=== PATIENT | male | born 1970 | race Caucasian/White ===

== ENCOUNTER 2016-12-10 09:31 | Inpatient (IN) | payer MEDICAID ==
[~2016-12-10] VITALS: Ht 170.2 cm; Wt 73.0 kg
[~2016-12-10 09:31] MED LIST: ARIP15TA3 PO; CITA20TA9 PO; RISP3 PO; TRAZ-147 PO
[2016-12-10 10:24] VITALS: BP 136/82
[2016-12-10] MEDS ORDERED: HALOPERIDOL 5 MG TABLET PO PRN (11:00)
[2016-12-10] MEDS ORDERED: LORazepam 2 MG TABLET PO PRN (11:00)
[2016-12-10] MEDS ORDERED: INFLUENZA VIRUS VACCINE QVS 2016-17 (3YR+)/PF 60 MCG/0.5 ML SYRINGE IM ONE (12:00)
[2016-12-10 12:01] VITALS: BP 136/84
[2016-12-10 16:14] VITALS: BP 127/76
[2016-12-10] MEDS: RisperiDONE 2 MG TABLET PO SCH (19:18)
[2016-12-10] MEDS: TraZODone HCL 100 MG TABLET PO SCH (20:20)
[2016-12-11 06:01] VITALS: BP 116/82
[2016-12-11 08:32] LABS: BASOPHILS % (AUTO) 0.3 % (0.0-2.0); EOSINOPHILS % (AUTO) 2.2 % (1.0-6.0); HEMATOCRIT 41.7 % (41-53); LYMPHOCYTES # (AUTO) 0.8 K/uL (1.0-4.8); LYMPHOCYTES % (AUTO) 24.8 % (22.0-44.0); MEAN CORPUSCULAR HEMOGLOBIN 30.4 pg (26.0-34.0); MEAN CORPUSCULAR HGB CONC 33.7 G/dL (31.0-37.0); MEAN CORPUSCULAR VOLUME 90 fL (80-100); MONOCYTES # (AUTO) 0.4 K/uL (0.1-1.0); MONOCYTES % (AUTO) 12.4 % (2.0-9.0); NEUTROPHILS # (AUTO) 2.1 K/uL (1.8-7.7); NEUTROPHILS % (AUTO) 60.3 % (40.0-70.0); PLATELET COUNT (AUTO) 137 K/uL (150-450); RED BLOOD CELL COUNT(AUTO) 4.61 MIL/uL (4.50-5.90); RED CELL DISTRIBUTION WIDTH 14.7 % (11.5-14.5); WHITE BLOOD COUNT (AUTO) 3.4 K/uL (4.5-11.0)
[2016-12-11 09:17] LABS: ALANINE AMINOTRANSFERASE 123 U/L (12-78); ALBUMIN 3.4 g/dL (3.4-5.0); ANION GAP 9 mmol/L (8-16); ASPARTATE AMINOTRANSFERASE 61 U/L (15-37); BILIRUBIN,TOTAL 1.1 mg/dL (0.1-1.0); CALCIUM, TOTAL 8.2 mg/dL (8.8-10.5); CARBON DIOXIDE 31 mmol/L (22-29); CHLORIDE 98 mmol/L (98-107); CREATININE 0.86 mg/dL (0.60-1.30); GLOMERULAR FILTR. RATE CALC > 60 mL/min (>60); POTASSIUM 3.3 mmol/L (3.5-5.1); SODIUM SERUM 138 mmol/L (136-145); UREA NITROGEN, BLOOD 12 mg/dL (7-18)
[2016-12-11 09:41] LABS: APPEARANCE,URINE CLOUDY (CLEAR); GLUCOSE, URINE (UA) NEGATIVE (NEGATIVE); KETONES,URINE 15 mg/dL (NEGATIVE); LEUKOCYTE ESTERASE ,URINE NEGATIVE (NEGATIVE); OCCULT BLOOD,URINE TRACE (NEGATIVE); PROTEIN,URINE POS 1+ (NEGATIVE)
[2016-12-11 09:45] LABS: ADD UA MICROSCOPIC YES
[2016-12-11 09:54] LABS: WBC,URINE 0-2 /HPF (0-5)
[2016-12-11 09:55] LABS: CALCIUM OXALATE CRYSTALS,UR Few /LPF (None Seen); SQUAMOUS EPITHELIAL CELL,UR Few /LPF (None Seen)
[2016-12-11 09:56] VITALS: BP 108/68
[2016-12-11] MEDS: RisperiDONE 2 MG TABLET PO SCH ×2 (10:02→16:10)
[2016-12-11] MEDS: NICOTINE 14 MG/24 HOUR PATCH TD SCH (10:02)
[2016-12-11] MEDS: ARIPiprazole 15 MG TABLET PO SCH (10:02)
[2016-12-11] MEDS: CITALOPRAM HYDROBROMIDE 20 MG TABLET PO SCH (10:02)
[2016-12-11] MEDS ORDERED: POTASSIUM CHLORIDE 20 MEQ ER TABLET PO ONE (11:00)
[2016-12-11 16:15] VITALS: BP 126/77
[2016-12-11] MEDS: TraZODone HCL 100 MG TABLET PO SCH (20:43)
[2016-12-12 00:36] VITALS: BP 123/79
[2016-12-12] MEDS: ZOLPIDEM TARTRATE 10 MG TABLET PO PRN ×2 (01:23→20:15)
[2016-12-12 07:53] LABS: ANION GAP 9 mmol/L (8-16); CALCIUM, TOTAL 7.9 mg/dL (8.8-10.5); CARBON DIOXIDE 29 mmol/L (22-29); CHLORIDE 100 mmol/L (98-107); CREATININE 0.76 mg/dL (0.60-1.30); GLOMERULAR FILTR. RATE CALC > 60 mL/min (>60); POTASSIUM 3.5 mmol/L (3.5-5.1); SODIUM SERUM 138 mmol/L (136-145); UREA NITROGEN, BLOOD 10 mg/dL (7-18)
[2016-12-12 08:43] VITALS: BP 112/60
[2016-12-12] MEDS: RisperiDONE 2 MG TABLET PO SCH ×2 (09:11→16:10)
[2016-12-12] MEDS: ARIPiprazole 15 MG TABLET PO SCH (09:11)
[2016-12-12] MEDS: CITALOPRAM HYDROBROMIDE 20 MG TABLET PO SCH (09:11)
[2016-12-12] MEDS: NICOTINE 14 MG/24 HOUR PATCH TD SCH (09:11)
[2016-12-12 16:11] VITALS: BP 139/92
[2016-12-12] MEDS: TraZODone HCL 100 MG TABLET PO SCH (20:13)
[2016-12-13 05:54] VITALS: BP 129/81
[2016-12-13] MEDS: RisperiDONE 2 MG TABLET PO SCH (08:08)
[2016-12-13] MEDS: CITALOPRAM HYDROBROMIDE 20 MG TABLET PO SCH (08:08)
[2016-12-13] MEDS: ARIPiprazole 15 MG TABLET PO SCH (08:09)
[2016-12-13] MEDS: NICOTINE 14 MG/24 HOUR PATCH TD SCH (08:09)
[2016-12-13 08:19] VITALS: BP 118/70
== END 2016-12-13 10:30 | disposition home or self-care (01) | DRG 750 ==
LOC: B2S 10:54
PROVIDERS: ADMIT Psychiatry & Neurology Psychiatry; ATTEND Psychiatry & Neurology Psychiatry
DX: F25.9 Schizoaffective disorder, unspecified (principal); F32.9 Major depressive disorder, single episode, unspecified; F99 Mental disorder, not otherwise specified; M19.90 Unspecified osteoarthritis, unspecified site; E87.6 Hypokalemia; E78.5 Hyperlipidemia, unspecified; D72.819 Decreased white blood cell count, unspecified; G89.29 Other chronic pain; Z71.6 Tobacco abuse counseling; Z28.21 Immunization not carried out because of patient refusal; Z79.899 Other long term (current) drug therapy
CPT/HCPCS: 80307; 87086

== ENCOUNTER 2017-07-06 10:23 | Inpatient (IN) | payer MEDICAID, OTHER ==
[2017-07-06] VITALS (7 sets, daily range): BP systolic 103–139; BP diastolic 68–107
[~2017-07-06] VITALS: Ht 167.6 cm; Wt 67.2 kg
[~2017-07-06 10:23] MED LIST changes: +ARIP15TA2 PO; -ARIP15TA3 PO
[2017-07-06] MEDS ORDERED: RISP2 PO (11:09)
[2017-07-06] MEDS ORDERED: LORazepam 2 MG/ML VIAL IM ONE (11:15)
[2017-07-06] MEDS ORDERED: DiphenhydrAMINE HCL 50 MG/ML VIAL IM ONE (11:15)
[2017-07-06] MEDS ORDERED: HALOPERIDOL LACTATE 5 MG/ML VIAL IM ONE (11:15)
[2017-07-06 11:36] LABS: BASOPHILS % (AUTO) 0.5 % (0.0-2.0); EOSINOPHILS % (AUTO) 1.1 % (1.0-6.0); HEMATOCRIT 49.5 % (41-53); HEMOGLOBIN 17.2 g/dL (13.5-17.5); LYMPHOCYTES # (AUTO) 2.4 K/uL (1.0-4.8); LYMPHOCYTES % (AUTO) 38.4 % (22.0-44.0); MEAN CORPUSCULAR HEMOGLOBIN 30.8 pg (26.0-34.0); MEAN CORPUSCULAR HGB CONC 34.7 G/dL (31.0-37.0); MEAN CORPUSCULAR VOLUME 89 fL (80-100); MONOCYTES # (AUTO) 0.4 K/uL (0.1-1.0); NEUTROPHILS # (AUTO) 3.4 K/uL (1.8-7.7); PLATELET COUNT (AUTO) 269 K/uL (150-450); RED BLOOD CELL COUNT(AUTO) 5.58 MIL/uL (4.50-5.90); RED CELL DISTRIBUTION WIDTH 12.9 % (11.5-14.5); WHITE BLOOD COUNT (AUTO) 6.2 K/uL (4.5-11.0)
[2017-07-06 11:37] LABS: ANION GAP 17 mmol/L (8-16); CALCIUM, TOTAL 8.9 mg/dL (8.8-10.5); CARBON DIOXIDE 24 mmol/L (22-29); CHLORIDE 95 mmol/L (98-107); CREATININE 0.88 mg/dL (0.60-1.30); GLOMERULAR FILTR. RATE CALC > 60 mL/min (>60); POTASSIUM 3.6 mmol/L (3.5-5.1); SODIUM SERUM 136 mmol/L (136-145); UREA NITROGEN, BLOOD 4 mg/dL (7-18)
[2017-07-06 11:43] LABS: ALANINE AMINOTRANSFERASE 40 U/L (12-78); ALBUMIN 4.3 g/dL (3.4-5.0); ASPARTATE AMINOTRANSFERASE 29 U/L (15-37); BILIRUBIN,TOTAL 0.6 mg/dL (0.1-1.0); TOTAL PROTEIN, SERUM 8.2 g/dL (6.4-8.2)
[2017-07-06] MEDS ORDERED: MAG HYDROX/AL HYDROX/SIMETH ES 30 ML SUSPENSION UDCUP PO PRN (13:45)
[2017-07-06] MEDS ORDERED: MAGNESIUM HYDROXIDE SUSPENSION 30 ML UDCUP PO PRN (13:45)
[2017-07-06] MEDS ORDERED: LOPERAMIDE HCL 2 MG CAPSULE PO PRN (13:45)
[2017-07-06] MEDS ORDERED: INFLUENZA VIRUS VACCINE QVS 2017-18 (3YR+)/PF 60 MCG/0.5 ML SYRINGE IM ONE (16:00)
[2017-07-06] MEDS ORDERED: ACETAMINOPHEN 325 MG TABLET PO PRN (19:30)
[2017-07-07] VITALS (9 sets, daily range): BP systolic 123–151; BP diastolic 81–99
[2017-07-07] MEDS: PROMETHAZINE HCL 25 MG TABLET PO PRN ×2 (03:28→11:07)
[2017-07-07 08:36] LABS: THYROID STIMULATING HORMONE 3.03 uIU/mL (0.36-3.74)
[2017-07-07] MEDS ORDERED: ARIPiprazole 15 MG TABLET PO SCH (09:15)
[2017-07-07] MEDS: CITALOPRAM HYDROBROMIDE 20 MG TABLET PO SCH (09:24)
[2017-07-07] MEDS ORDERED: LORazepam 2 MG TABLET PO PRN (09:30)
[2017-07-07] MEDS ORDERED: HALOPERIDOL 5 MG TABLET PO PRN (09:30)
[2017-07-07] MEDS ORDERED: CYANOCOBALAMIN 1,000 MCG/ML VIAL IM ONE (10:15)
[2017-07-07] MEDS ORDERED: HydrOXYzine PAMOATE 50 MG CAPSULE PO PRN (10:15)
[2017-07-07] MEDS ORDERED: LOPERAMIDE HCL 2 MG CAPSULE PO PRN (10:15)
[2017-07-07] MEDS ORDERED: GuaiFENesin/D-METHORPHAN [SUGAR-FREE] 200-20MG/10 ML SYRUP UDCUP PO PRN (10:15)
[2017-07-07] MEDS: THIAMINE HCL 100 MG TABLET PO SCH (16:28)
[2017-07-07] MEDS ORDERED: CloNIDine HCL 0.1 MG TABLET PO PRN (16:45)
[2017-07-07] MEDS ORDERED: IBUPROFEN 400 MG TABLET PO PRN (16:45)
[2017-07-07] MEDS: TraZODone HCL 100 MG TABLET PO SCH (20:55)
[2017-07-08 01:51] VITALS: BP 123/81
[2017-07-08] MEDS ORDERED: ChlordiazePOXIDE HCL 25 MG CAPSULE PO PRN (07:00)
[2017-07-08] MEDS: CITALOPRAM HYDROBROMIDE 20 MG TABLET PO SCH (08:39)
[2017-07-08] MEDS: RisperiDONE 3 MG TABLET PO SCH ×2 (08:39→16:42)
[2017-07-08] MEDS: FOLIC ACID 1 MG TABLET PO SCH (08:39)
[2017-07-08] MEDS: ChlordiazePOXIDE HCL 25 MG CAPSULE PO SCH ×4 (08:39→20:32)
[2017-07-08] MEDS: THIAMINE HCL 100 MG TABLET PO SCH ×2 (08:39→16:42)
[2017-07-08] MEDS: MULTIVITAMINS WITH MINERALS, THERAPEUTIC TABLET PO SCH (08:40)
[2017-07-08] MEDS: NICOTINE 14 MG/24 HOUR PATCH TD SCH (08:40)
[2017-07-08 09:15] VITALS: BP 124/71
[2017-07-08 16:25] VITALS: BP 114/95
[2017-07-08] MEDS: TraZODone HCL 100 MG TABLET PO SCH (20:32)
[2017-07-09 06:15] VITALS: BP 107/66
[2017-07-09] MEDS: ChlordiazePOXIDE HCL 25 MG CAPSULE PO SCH ×4 (08:54→20:47)
[2017-07-09] MEDS: FOLIC ACID 1 MG TABLET PO SCH (08:54)
[2017-07-09] MEDS: RisperiDONE 3 MG TABLET PO SCH ×2 (08:54→17:29)
[2017-07-09] MEDS: MULTIVITAMINS WITH MINERALS, THERAPEUTIC TABLET PO SCH (08:54)
[2017-07-09] MEDS: CITALOPRAM HYDROBROMIDE 20 MG TABLET PO SCH (08:54)
[2017-07-09] MEDS: THIAMINE HCL 100 MG TABLET PO SCH ×2 (08:54→17:30)
[2017-07-09] MEDS: NICOTINE 14 MG/24 HOUR PATCH TD SCH (08:55)
[2017-07-09 09:03] VITALS: BP 122/82
[2017-07-09 16:55] VITALS: BP 129/89
[2017-07-09] MEDS: TraZODone HCL 100 MG TABLET PO SCH (20:47)
[2017-07-10 00:16] VITALS: BP 120/78
[2017-07-10] MEDS ORDERED: ChlordiazePOXIDE HCL 10 MG CAPSULE PO PRN (07:00)
[2017-07-10] MEDS: NICOTINE 14 MG/24 HOUR PATCH TD SCH (08:22)
[2017-07-10] MEDS: MULTIVITAMINS WITH MINERALS, THERAPEUTIC TABLET PO SCH (08:22)
[2017-07-10] MEDS: THIAMINE HCL 100 MG TABLET PO SCH (08:22)
[2017-07-10] MEDS: FOLIC ACID 1 MG TABLET PO SCH (08:22)
[2017-07-10] MEDS: RisperiDONE 3 MG TABLET PO SCH (08:22)
[2017-07-10] MEDS: CITALOPRAM HYDROBROMIDE 20 MG TABLET PO SCH (08:22)
[2017-07-10] MEDS ORDERED: ChlordiazePOXIDE HCL 10 MG CAPSULE PO SCH (09:00)
[2017-07-10] MEDS ORDERED: RISP3TAB44 PO (09:32)
[2017-07-10] MEDS ORDERED: FOLI1 PO (09:33)
[2017-07-10] MEDS ORDERED: MV-M1TAB2 PO (09:33)
[2017-07-11] MEDS ORDERED: ChlordiazePOXIDE HCL 10 MG CAPSULE PO PRN (07:00)
== END 2017-07-10 11:10 | disposition home or self-care (01) | DRG 750 ==
LOC: EMS 10:29 → B2S 13:40
PROVIDERS: ADMIT Psychiatry & Neurology Psychiatry; ATTEND Psychiatry & Neurology Psychiatry
DX: F25.9 Schizoaffective disorder, unspecified (principal); F22 Delusional disorders; I10 Essential (primary) hypertension; F10.10 Alcohol abuse, uncomplicated; F17.200 Nicotine dependence, unspecified, uncomplicated; M19.90 Unspecified osteoarthritis, unspecified site; F32.9 Major depressive disorder, single episode, unspecified
CPT/HCPCS: 84439; 84443; 90471; 96372; 99285; G0480; J1200; J1630; J2060; J3420

== ENCOUNTER 2017-09-06 07:51 | Inpatient (IN) | payer MEDICAID, OTHER ==
[~2017-09-06] VITALS: Ht 177.8 cm; Wt 67.6 kg
[~2017-09-06 07:51] MED LIST changes: -ARIP15TA2 PO; -RISP3 PO; +RISP3TAB44 PO
[2017-09-06] MEDS ORDERED: HALOPERIDOL LACTATE 5 MG/ML VIAL IM ONE (08:30)
[2017-09-06] MEDS ORDERED: LORazepam 2 MG/ML VIAL IM ONE (08:30)
[2017-09-06] MEDS ORDERED: DiphenhydrAMINE HCL 50 MG/ML VIAL IM ONE (08:30)
[2017-09-06 10:04] LABS: BASOPHILS # (AUTO) 0.03 K/uL (0.00-0.20); BASOPHILS % (AUTO) 0.4 % (0.0-2.0); EOSINOPHILS # (AUTO) 0.02 K/uL (0.00-0.70); EOSINOPHILS % (AUTO) 0.28 % (1.0-6.0); HEMATOCRIT 50.1 % (41-53); HEMOGLOBIN 16.7 g/dL (13.5-17.5); LYMPHOCYTES # (AUTO) 1.2 K/uL (1.0-4.8); LYMPHOCYTES % (AUTO) 16.3 % (22.0-44.0); MEAN CORPUSCULAR HEMOGLOBIN 30.1 pg (26.0-34.0); MEAN CORPUSCULAR HGB CONC 33.3 G/dL (31.0-37.0); MEAN CORPUSCULAR VOLUME 90 fL (80-100); MONOCYTES # (AUTO) 0.4 K/uL (0.1-1.0); MONOCYTES % (AUTO) 5.8 % (2.0-9.0); NEUTROPHILS # (AUTO) 5.6 K/uL (1.8-7.7); NEUTROPHILS % (AUTO) 77.2 % (40.0-70.0); PLATELET COUNT (AUTO) 236 K/uL (150-450); RED BLOOD CELL COUNT(AUTO) 5.54 MIL/uL (4.50-5.90); RED CELL DISTRIBUTION WIDTH 13.2 % (11.5-14.5); WHITE BLOOD COUNT (AUTO) 7.2 K/uL (4.5-11.0)
[2017-09-06 10:08] LABS: ANION GAP 15 mmol/L (8-16); CALCIUM, TOTAL 9.2 mg/dL (8.8-10.5); CARBON DIOXIDE 25 mmol/L (22-29); CHLORIDE 95 mmol/L (98-107); CREATININE 0.95 mg/dL (0.60-1.30); GLOMERULAR FILTR. RATE CALC > 60 mL/min (>60); POTASSIUM 4.3 mmol/L (3.5-5.1); SODIUM SERUM 135 mmol/L (136-145); UREA NITROGEN, BLOOD 9 mg/dL (7-18)
[2017-09-06 10:14] LABS: ALANINE AMINOTRANSFERASE 36 U/L (12-78); ASPARTATE AMINOTRANSFERASE 31 U/L (15-37); BILIRUBIN,TOTAL 0.5 mg/dL (0.1-1.0); TOTAL PROTEIN, SERUM 8.1 g/dL (6.4-8.2)
[2017-09-06 11:25] VITALS: BP 114/66
[2017-09-06 11:27] VITALS: BP 114/66
[2017-09-06 16:00] VITALS: BP 129/83
[2017-09-06] MEDS: RisperiDONE 3 MG TABLET PO SCH (16:55)
[2017-09-06] MEDS: HALOPERIDOL 5 MG TABLET PO PRN (16:55)
[2017-09-06] MEDS: LORazepam 2 MG TABLET PO PRN (16:55)
[2017-09-06] MEDS: CITALOPRAM HYDROBROMIDE 20 MG TABLET PO SCH (16:55)
[2017-09-06] MEDS: ZOLPIDEM TARTRATE 10 MG TABLET PO PRN (20:46)
[2017-09-06] MEDS: TraZODone HCL 100 MG TABLET PO SCH (20:46)
[2017-09-07 06:42] VITALS: BP 124/77
[2017-09-07 07:40] LABS: CHOL/HDL RATIO 4.3 (4.2-7.3); THYROID STIMULATING HORMONE 1.6 uIU/mL (0.36-3.74)
[2017-09-07 08:30] VITALS: BP 125/78
[2017-09-07 08:48] LABS: HEMOGLOBIN A1C 5.5 % (4.5-6.2)
[2017-09-07] MEDS: RisperiDONE 3 MG TABLET PO SCH ×2 (09:15→16:32)
[2017-09-07] MEDS: CITALOPRAM HYDROBROMIDE 20 MG TABLET PO SCH (09:15)
[2017-09-07 16:00] VITALS: BP 122/81
[2017-09-07] MEDS: HALOPERIDOL 5 MG TABLET PO PRN (16:32)
[2017-09-07] MEDS: LORazepam 2 MG TABLET PO PRN (16:32)
[2017-09-07] MEDS: ZOLPIDEM TARTRATE 10 MG TABLET PO PRN (20:59)
[2017-09-07] MEDS: TraZODone HCL 100 MG TABLET PO SCH (20:59)
[2017-09-08 06:12] VITALS: BP 126/79
[2017-09-08 08:20] VITALS: BP 134/77
[2017-09-08] MEDS: RisperiDONE 3 MG TABLET PO SCH ×2 (09:44→16:56)
[2017-09-08] MEDS: CITALOPRAM HYDROBROMIDE 20 MG TABLET PO SCH (09:44)
[2017-09-08 16:00] VITALS: BP 116/81
[2017-09-08] MEDS: LORazepam 2 MG TABLET PO PRN (17:41)
[2017-09-08] MEDS: ZOLPIDEM TARTRATE 10 MG TABLET PO PRN (20:44)
[2017-09-08] MEDS: TraZODone HCL 100 MG TABLET PO SCH (20:44)
[2017-09-09 06:44] VITALS: BP 115/75
[2017-09-09 08:36] VITALS: BP 135/77
[2017-09-09] MEDS: CITALOPRAM HYDROBROMIDE 20 MG TABLET PO SCH (09:46)
[2017-09-09] MEDS: RisperiDONE 3 MG TABLET PO SCH (09:46)
== END 2017-09-09 12:20 | disposition home or self-care (01) | DRG 750 ==
LOC: EMS 07:53 → B3A 10:00
PROVIDERS: ADMIT Psychiatry & Neurology Psychiatry; ATTEND Psychiatry & Neurology Psychiatry
DX: F25.0 Schizoaffective disorder, bipolar type (principal); Z91.14 Patient's other noncompliance with medication regimen; I10 Essential (primary) hypertension; F41.9 Anxiety disorder, unspecified; F17.210 Nicotine dependence, cigarettes, uncomplicated; M19.90 Unspecified osteoarthritis, unspecified site; F32.9 Major depressive disorder, single episode, unspecified; F10.10 Alcohol abuse, uncomplicated; E78.5 Hyperlipidemia, unspecified; F19.10 Other psychoactive substance abuse, uncomplicated; Z71.41 Alcohol abuse counseling and surveillance of alcoholic; Z79.899 Other long term (current) drug therapy; Z71.6 Tobacco abuse counseling; Z71.51 Drug abuse counseling and surveillance of drug abuser
CPT/HCPCS: 83036; 84439; 84443; 96372; 99285; G0480; J1200; J1630; J2060

== ENCOUNTER 2018-05-12 09:50 | Inpatient (IN) | payer MEDICAID ==
[~2018-05-12] VITALS: Ht 172.7 cm; Wt 72.1 kg
[2018-05-12] VITALS (9 sets, daily range): BP systolic 109–144; BP diastolic 61–90
[~2018-05-12 09:50] MED LIST changes: +CITA-106 PO; -CITA20TA9 PO; -TRAZ-147 PO; +TRAZ-220 PO
[2018-05-12] MEDS ORDERED: ZOLPIDEM TARTRATE 10 MG TABLET PO PRN (10:30)
[2018-05-12] MEDS ORDERED: GuaiFENesin/D-METHORPHAN [SUGAR-FREE] 200-20MG/10 ML SYRUP UDCUP PO PRN ×2 (10:30→13:00)
[2018-05-12] MEDS ORDERED: LORazepam 2 MG TABLET PO PRN ×2 (10:30)
[2018-05-12] MEDS ORDERED: LOPERAMIDE HCL 2 MG CAPSULE PO PRN ×2 (10:30→13:00)
[2018-05-12] MEDS ORDERED: HydrOXYzine PAMOATE 50 MG CAPSULE PO PRN (10:30)
[2018-05-12] MEDS ORDERED: HALOPERIDOL 5 MG TABLET PO PRN (10:30)
[2018-05-12] MEDS ORDERED: CYANOCOBALAMIN 1,000 MCG/ML VIAL IM ONE (10:30)
[2018-05-12] MEDS ORDERED: MAG HYDROX/AL HYDROX/SIMETH ES 30 ML SUSPENSION UDCUP PO PRN (13:00)
[2018-05-12] MEDS ORDERED: CloNIDine HCL 0.1 MG TABLET PO PRN (13:00)
[2018-05-12] MEDS ORDERED: ACETAMINOPHEN 325 MG TABLET PO PRN (13:00)
[2018-05-12] MEDS ORDERED: MAGNESIUM HYDROXIDE SUSPENSION 30 ML UDCUP PO PRN (13:00)
[2018-05-12] MEDS ORDERED: ALBUTEROL SULFATE HFA 90 MCG/PUFF 8 GM INHALER IH PRN (13:00)
[2018-05-12] MEDS ORDERED: ONDANSETRON HCL 4 MG TABLET PO PRN (13:00)
[2018-05-12] MEDS ORDERED: DOCUSATE SODIUM 100 MG CAPSULE PO PRN (13:00)
[2018-05-12] MEDS ORDERED: IBUPROFEN 400 MG TABLET PO PRN (13:00)
[2018-05-12] MEDS ORDERED: PETROLATUM,WHITE 71 GM JELLY TP PRN (13:00)
[2018-05-12] MEDS: NICOTINE 14 MG/24 HOUR PATCH TD SCH (13:07)
[2018-05-12] MEDS: THIAMINE HCL 100 MG TABLET PO SCH (16:20)
[2018-05-13] VITALS (7 sets, daily range): BP systolic 111–125; BP diastolic 60–79
[2018-05-13] MEDS ORDERED: LORazepam 2 MG TABLET PO PRN (07:00)
[2018-05-13 08:44] LABS: BASOPHILS % (AUTO) 0.4 % (0.0-2.0); EOSINOPHILS % (AUTO) 5.2 % (1.0-6.0); HEMATOCRIT 44.9 % (41-53); HEMOGLOBIN 15.7 g/dL (13.5-17.5); LYMPHOCYTES # (AUTO) 1.2 K/uL (1.0-4.8); MEAN CORPUSCULAR HGB CONC 35.1 G/dL (31.0-37.0); MEAN CORPUSCULAR VOLUME 89 fL (80-100); MONOCYTES # (AUTO) 0.4 K/uL (0.1-1.0); MONOCYTES % (AUTO) 7.3 % (2.0-9.0); NEUTROPHILS # (AUTO) 3.4 K/uL (1.8-7.7); NEUTROPHILS % (AUTO) 64.1 % (40.0-70.0); PLATELET COUNT (AUTO) 178 K/uL (150-450); RED BLOOD CELL COUNT(AUTO) 5.07 MIL/uL (4.50-5.90); RED CELL DISTRIBUTION WIDTH 12.8 % (11.5-14.5)
[2018-05-13] MEDS: LORazepam 2 MG TABLET PO SCH ×4 (08:54→20:30)
[2018-05-13] MEDS: FOLIC ACID 1 MG TABLET PO SCH (08:54)
[2018-05-13] MEDS: MULTIVITAMINS WITH MINERALS, THERAPEUTIC TABLET PO SCH (08:54)
[2018-05-13] MEDS: THIAMINE HCL 100 MG TABLET PO SCH ×2 (08:54→16:35)
[2018-05-13] MEDS: NICOTINE 14 MG/24 HOUR PATCH TD SCH (08:55)
[2018-05-13 09:03] LABS: HEMOGLOBIN A1C 5.4 % (4.5-6.2)
[2018-05-13 09:11] LABS: AMPHET/METH SCREEN,URINE NEGATIVE (NEGATIVE); BARBITURATE SCREEN, URINE NEGATIVE (NEGATIVE); BENZODIAZEPINES SCREEN,URINE NEGATIVE (NEGATIVE); CANNABINOID SCREEN,URINE NEGATIVE (NEGATIVE); COCAINE SCREEN,URINE NEGATIVE (NEGATIVE); METHADONE SCREEN, URINE NEGATIVE (NEGATIVE); OPIATE SCREEN,URINE NEGATIVE (NEGATIVE)
[2018-05-13 09:14] LABS: PHENCYCLIDINE SCREEN,URINE NEGATIVE (NEGATIVE)
[2018-05-13 09:20] LABS: APPEARANCE,URINE CLEAR (CLEAR); BILIRUBIN,URINE NEGATIVE (NEGATIVE); GLUCOSE, URINE (UA) NEGATIVE (NEGATIVE); KETONES,URINE 15 mg/dL (NEGATIVE); LEUKOCYTE ESTERASE ,URINE NEGATIVE (NEGATIVE); NITRATE,URINE NEGATIVE (NEGATIVE); OCCULT BLOOD,URINE NEGATIVE (NEGATIVE); PH,URINE 8.5 (5.0-8.0); PROTEIN,URINE NEGATIVE (NEGATIVE); UROBILINOGEN,URINE 0.2 mg/dL (<=1.0)
[2018-05-13 09:38] LABS: ALANINE AMINOTRANSFERASE 27 U/L (12-78); ALBUMIN 3.6 g/dL (3.4-5.0); ALKALINE PHOSPHATASE 91 U/L (46-116); ANION GAP 10 mmol/L (8-16); ASPARTATE AMINOTRANSFERASE 23 U/L (15-37); BILIRUBIN,TOTAL 1.2 mg/dL (0.1-1.0); CALCIUM, TOTAL 8.9 mg/dL (8.8-10.5); CARBON DIOXIDE 27 mmol/L (22-29); CHLORIDE 100 mmol/L (98-107); CHOL/HDL RATIO 4.6 (4.2-7.3); CHOLESTEROL 269 mg/dL (131-200); CREATININE 0.77 mg/dL (0.60-1.30); FREE T4 (FREE THYROXINE) 1.27 ng/dL (0.76-1.46); GLOMERULAR FILTR. RATE CALC > 60 mL/min (>60); GLUCOSE,RANDOM 86 mg/dL (70-110); HDL CHOLESTEROL 58 mg/dL (40-60); LDL CHOL (CALC.) 183 mg/dL (0-130); POTASSIUM 3.5 mmol/L (3.5-5.1); SODIUM SERUM 137 mmol/L (136-145); TOTAL PROTEIN, SERUM 7.3 g/dL (6.4-8.2); TRIGLYCERIDES 139 mg/dL (15-150); UREA NITROGEN, BLOOD 8 mg/dL (7-18)
[2018-05-13] MEDS: RisperiDONE 2 MG TABLET PO SCH ×2 (12:14→20:30)
[2018-05-13] MEDS: CITALOPRAM HYDROBROMIDE 10 MG TABLET PO SCH (12:14)
[2018-05-14 05:29] VITALS: BP 113/73
[2018-05-14 06:56] VITALS: BP 113/73
[2018-05-14 08:24] VITALS: BP 110/75
[2018-05-14 08:35] VITALS: BP 110/75
[2018-05-14] MEDS: CITALOPRAM HYDROBROMIDE 10 MG TABLET PO SCH (09:27)
[2018-05-14] MEDS: THIAMINE HCL 100 MG TABLET PO SCH ×2 (09:27→16:38)
[2018-05-14] MEDS: MULTIVITAMINS WITH MINERALS, THERAPEUTIC TABLET PO SCH (09:27)
[2018-05-14] MEDS: RisperiDONE 2 MG TABLET PO SCH ×2 (09:27→20:08)
[2018-05-14] MEDS: LORazepam 2 MG TABLET PO SCH ×4 (09:27→20:09)
[2018-05-14] MEDS: NICOTINE 14 MG/24 HOUR PATCH TD SCH (09:33)
[2018-05-14] MEDS: FOLIC ACID 1 MG TABLET PO SCH (09:33)
[2018-05-14 16:15] VITALS: BP 121/78
[2018-05-14 16:17] VITALS: BP 121/78
[2018-05-15 02:23] VITALS: BP 105/73
[2018-05-15] MEDS ORDERED: LORazepam 1 MG TABLET PO PRN (07:00)
[2018-05-15 08:17] VITALS: BP 119/86
[2018-05-15] MEDS: RisperiDONE 2 MG TABLET PO SCH ×2 (08:39→20:31)
[2018-05-15] MEDS: FOLIC ACID 1 MG TABLET PO SCH (08:39)
[2018-05-15] MEDS: THIAMINE HCL 100 MG TABLET PO SCH ×2 (08:39→16:44)
[2018-05-15] MEDS: LORazepam 1 MG TABLET PO SCH ×4 (08:39→20:31)
[2018-05-15] MEDS: MULTIVITAMINS WITH MINERALS, THERAPEUTIC TABLET PO SCH (08:39)
[2018-05-15] MEDS: CITALOPRAM HYDROBROMIDE 10 MG TABLET PO SCH (08:40)
[2018-05-15] MEDS: NICOTINE 14 MG/24 HOUR PATCH TD SCH (08:40)
[2018-05-15 10:06] VITALS: BP 119/86
[2018-05-15 16:02] VITALS: BP 116/79
[2018-05-16 02:00] VITALS: BP 123/76
[2018-05-16 06:14] VITALS: BP 123/76
[2018-05-16] MEDS ORDERED: LORazepam 1 MG TABLET PO PRN (07:00)
[2018-05-16] MEDS: FOLIC ACID 1 MG TABLET PO SCH (08:15)
[2018-05-16] MEDS: RisperiDONE 2 MG TABLET PO SCH (08:15)
[2018-05-16] MEDS: MULTIVITAMINS WITH MINERALS, THERAPEUTIC TABLET PO SCH (08:15)
[2018-05-16 08:16] VITALS: BP 115/72
[2018-05-16] MEDS: THIAMINE HCL 100 MG TABLET PO SCH ×2 (08:16→16:21)
[2018-05-16] MEDS: CITALOPRAM HYDROBROMIDE 10 MG TABLET PO SCH (08:16)
[2018-05-16] MEDS: NICOTINE 14 MG/24 HOUR PATCH TD SCH (08:27)
[2018-05-16 09:48] VITALS: BP 115/72
[2018-05-16 16:26] VITALS: BP 115/82
[2018-05-16 16:32] VITALS: BP 115/82
[2018-05-16] MEDS: RisperiDONE 3 MG TABLET PO SCH (20:05)
[2018-05-17 02:00] VITALS: BP 112/77
[2018-05-17 08:16] VITALS: BP 123/84
[2018-05-17] MEDS: THIAMINE HCL 100 MG TABLET PO SCH (08:33)
[2018-05-17] MEDS: MULTIVITAMINS WITH MINERALS, THERAPEUTIC TABLET PO SCH (08:33)
[2018-05-17] MEDS: RisperiDONE 3 MG TABLET PO SCH (08:33)
[2018-05-17] MEDS: FOLIC ACID 1 MG TABLET PO SCH (08:33)
[2018-05-17] MEDS: NICOTINE 14 MG/24 HOUR PATCH TD SCH (08:36)
[2018-05-17] MEDS: CITALOPRAM HYDROBROMIDE 10 MG TABLET PO SCH (09:21)
[2018-05-17] MEDS ORDERED: MULT-1239 PO (11:41)
[2018-05-17] MEDS ORDERED: THIA100T67 PO (11:41)
[2018-05-17] MEDS ORDERED: FOLI1 PO (11:41)
== END 2018-05-17 12:57 | disposition home or self-care (01) | DRG 750 ==
LOC: B2S 10:59
DX: F25.1 Schizoaffective disorder, depressive type (principal); R45.851 Suicidal ideations; E78.5 Hyperlipidemia, unspecified; F19.10 Other psychoactive substance abuse, uncomplicated; M19.90 Unspecified osteoarthritis, unspecified site; F10.20 Alcohol dependence, uncomplicated; F32.9 Major depressive disorder, single episode, unspecified; Z79.899 Other long term (current) drug therapy; Z71.51 Drug abuse counseling and surveillance of drug abuser; Z71.41 Alcohol abuse counseling and surveillance of alcoholic
CPT/HCPCS: 80307; 83036; 84439; 84443; J3420

== ENCOUNTER 2018-07-15 09:07 | Inpatient (IN) | payer MEDICAID ==
[~2018-07-15] VITALS: Ht 172.7 cm; Wt 76.9 kg
[~2018-07-15 09:07] MED LIST changes: +FOLI1 PO; +MULT-1239 PO; +THIA100T67 PO; -TRAZ-220 PO
[2018-07-15] MEDS ORDERED: HALOPERIDOL 5 MG TABLET PO ONE (10:00)
[2018-07-15] MEDS ORDERED: LORazepam 2 MG TABLET PO ONE (10:45)
[2018-07-15 10:54] LABS: BASOPHILS % (AUTO) 0.4 % (0.0-2.0); EOSINOPHILS % (AUTO) 0.1 % (1.0-6.0); HEMATOCRIT 43.3 % (41-53); HEMOGLOBIN 15.4 g/dL (13.5-17.5); LYMPHOCYTES # (AUTO) 1.3 K/uL (1.0-4.8); MEAN CORPUSCULAR HGB CONC 35.6 G/dL (31.0-37.0); MEAN CORPUSCULAR VOLUME 87 fL (80-100); MONOCYTES # (AUTO) 0.9 K/uL (0.1-1.0); MONOCYTES % (AUTO) 7.5 % (2.0-9.0); NEUTROPHILS # (AUTO) 10.4 K/uL (1.8-7.7); PLATELET COUNT (AUTO) 248 K/uL (150-450); RED BLOOD CELL COUNT(AUTO) 4.99 MIL/uL (4.50-5.90)
[2018-07-15 11:06] LABS: ANION GAP 16 mmol/L (8-16); CALCIUM, TOTAL 8.5 mg/dL (8.8-10.5); CARBON DIOXIDE 24 mmol/L (22-29); CHLORIDE 87 mmol/L (98-107); CREATININE 0.78 mg/dL (0.60-1.30); GLOMERULAR FILTR. RATE CALC > 60 mL/min (>60); GLUCOSE,RANDOM 107 mg/dL (70-110); POTASSIUM 3.2 mmol/L (3.5-5.1); SODIUM SERUM 127 mmol/L (136-145); UREA NITROGEN, BLOOD 8 mg/dL (7-18)
[2018-07-15] MEDS ORDERED: ZOLPIDEM TARTRATE 10 MG TABLET PO PRN (11:30)
[2018-07-15] MEDS ORDERED: LORazepam 2 MG TABLET PO PRN (11:30)
[2018-07-15] MEDS ORDERED: HALOPERIDOL 5 MG TABLET PO PRN (11:30)
[2018-07-15 11:34] LABS: ALANINE AMINOTRANSFERASE 22 U/L (12-78); ALBUMIN 3.7 g/dL (3.4-5.0); ALKALINE PHOSPHATASE 90 U/L (46-116); ASPARTATE AMINOTRANSFERASE 20 U/L (15-37); CREATINE KINASE, TOTAL ONLY 125 U/L (39-308); TOTAL PROTEIN, SERUM 7.6 g/dL (6.4-8.2)
[2018-07-15 11:45] LABS: AMPHET/METH SCREEN,URINE NEGATIVE (NEGATIVE); BARBITURATE SCREEN, URINE NEGATIVE (NEGATIVE); BENZODIAZEPINES SCREEN,URINE NEGATIVE (NEGATIVE); CANNABINOID SCREEN,URINE NEGATIVE (NEGATIVE); COCAINE SCREEN,URINE NEGATIVE (NEGATIVE); METHADONE SCREEN, URINE NEGATIVE (NEGATIVE); OPIATE SCREEN,URINE NEGATIVE (NEGATIVE)
[2018-07-15] MEDS ORDERED: ONDANSETRON HCL 4 MG TABLET PO ONE (11:45)
[2018-07-15 11:48] LABS: PHENCYCLIDINE SCREEN,URINE NEGATIVE (NEGATIVE)
[2018-07-15 13:15] VITALS: BP 114/72
[2018-07-15] MEDS ORDERED: POTASSIUM CHLORIDE 20 MEQ ER TABLET PO ONE (14:45)
[2018-07-15 16:25] VITALS: BP 116/70
[2018-07-15 17:15] VITALS: BP 116/70
[2018-07-15] MEDS: RisperiDONE 3 MG TABLET PO SCH (20:32)
[2018-07-15 21:15] VITALS: BP 122/76
[2018-07-16] VITALS (8 sets, daily range): BP systolic 111–128; BP diastolic 69–89
[2018-07-16 08:41] LABS: ANION GAP 9 mmol/L (8-16); CALCIUM, TOTAL 8.6 mg/dL (8.8-10.5); CARBON DIOXIDE 29 mmol/L (22-29); CHLORIDE 96 mmol/L (98-107); CREATININE 0.89 mg/dL (0.60-1.30); GLOMERULAR FILTR. RATE CALC > 60 mL/min (>60); GLUCOSE,RANDOM 124 mg/dL (70-110); POTASSIUM 3.5 mmol/L (3.5-5.1); SODIUM SERUM 134 mmol/L (136-145); UREA NITROGEN, BLOOD 8 mg/dL (7-18)
[2018-07-16] MEDS: RisperiDONE 3 MG TABLET PO SCH ×2 (08:59→21:11)
[2018-07-17 02:04] VITALS: BP 119/76
[2018-07-17 03:56] VITALS: BP 119/76
[2018-07-17 08:09] VITALS: BP 103/63
[2018-07-17 08:11] VITALS: BP 103/63
[2018-07-17] MEDS: PANTOPRAZOLE SODIUM 40 MG DR TABLET PO SCH (08:24)
[2018-07-17] MEDS: RisperiDONE 3 MG TABLET PO SCH ×2 (08:24→20:43)
[2018-07-17] MEDS ORDERED: PANT20TA PO (11:27)
[2018-07-17 16:00] VITALS: BP 115/64
[2018-07-17 16:12] VITALS: BP 115/64
[2018-07-18 05:22] VITALS: BP 119/79
[2018-07-18 06:04] VITALS: BP 119/76
[2018-07-18] MEDS: RisperiDONE 3 MG TABLET PO SCH (08:32)
[2018-07-18] MEDS: PANTOPRAZOLE SODIUM 40 MG DR TABLET PO SCH (08:32)
[2018-07-18 08:36] VITALS: BP 121/81
== END 2018-07-18 11:55 | disposition home or self-care (01) | DRG 750 ==
LOC: BV PSY EVL 09:07 → B3A 11:28 → B2S 12:15
PROVIDERS: ADMIT Psychiatry & Neurology Psychiatry; ATTEND Psychiatry & Neurology Psychiatry
DX: F25.9 Schizoaffective disorder, unspecified (principal); E87.1 Hypo-osmolality and hyponatremia; R45.851 Suicidal ideations; E87.6 Hypokalemia; F41.9 Anxiety disorder, unspecified; M19.90 Unspecified osteoarthritis, unspecified site; E78.5 Hyperlipidemia, unspecified; F17.210 Nicotine dependence, cigarettes, uncomplicated; F31.9 Bipolar disorder, unspecified; F10.20 Alcohol dependence, uncomplicated; R07.89 Other chest pain; Z79.899 Other long term (current) drug therapy
CPT/HCPCS: 93005; G0480; Q0162